=== PATIENT | male | born 1965 | race Caucasian/White ===

== ENCOUNTER 2021-06-02 21:34 | Emergency (ER) | payer SELFPAY ==
[~2021-06-02] VITALS: Ht 172.7 cm; Wt 79.4 kg
[2021-06-02 21:34] VITALS: BP 126/65
--- NOTE | 2021-06-02 21:40 | NUR ---
Patient does not wish to proceed with medical care recommended by Og Melendez. Patient given information related to possible complications, up to and including , which could occur as a result of leaving the hospital at this time. Patient verbalizes understanding of risks involved due to leaving against medical advice. Patient has signed AMA form.
== END 2021-06-02 22:17 | disposition left against medical advice (07) ==
LOC: ER 21:39
DX: T40.601A Poisoning by unspecified narcotics, accidental (unintentional), initial encounter (principal); R40.4 Transient alteration of awareness; Y92.89 Other specified places as the place of occurrence of the external cause